=== PATIENT | female | born 1995 | race American Indian/Alaskan Native ===

== ENCOUNTER 2018-01-13 11:28 | Emergency (ER) | payer OTHER ==
[2018-01-13 11:47] VITALS: BP 150/93
[2018-01-13 12:07] LABS: Basophils % (Auto) 0.3 % (0.0-1.8); Hematocrit 43.4 % (30.3-42.9); Hemoglobin 14.1 gm/dl (10.1-14.3); Lymphocytes # (Auto) 1.4 K/mm3 (1.2-5.4); Mean Corpuscular HGB Conc 32 % (30-34); Mean Corpuscular Volume 77 fl (79-97); Monocytes # (Auto) 0.5 K/mm3 (0.0-0.8); Monocytes % (Auto) 6.2 % (0.0-7.3); Platelet Count 199 K/mm3 (140-440); Red Blood Count 5.63 M/mm3 (3.65-5.03); Red Cell Distribution Width 14.3 % (13.2-15.2)
[2018-01-13 12:12] LABS: Mean Corpuscular Hemoglobin 25 pg (28-32)
[2018-01-13 12:40] LABS: BUN/Creatinine Ratio 7; Blood Urea Nitrogen 5 mg/dL (7-17); Calcium 9.4 mg/dL (8.4-10.2); Hemolysis Index 27
[2018-01-13 13:02] LABS: Alanine Aminotransferase 25 units/L (7-56); Albumin 4.8 g/dL (3.9-5); Lipase 12 units/L (13-60)
[2018-01-13 13:07] LABS: Bilirubin,Direct < 0.2 mg/dL (0-0.2)
[2018-01-13] MEDS ORDERED: K-DUR PO ONE (13:09)
[2018-01-13] MEDS ORDERED: TORADOL IM ONE (13:09)
--- NOTE | 2018-01-13 13:35 | XRay Report ---
ABDOMEN, 2 views: History: Abdominal pain. There is no evidence of free air beneath the diaphragms. The gas pattern within the abdomen is unremarkable. There is no evidence of bowel dilatation, significant air-fluid levels, or pathologic calcifications. Organ shadows are unremarkable. An IUD is identified within the pelvis. IMPRESSION: Unremarkable abdomen.
[2018-01-13] MEDS ORDERED: GEODON IM ONE (13:54)
[2018-01-13] MEDS ORDERED: WATER FOR INJ (PF) 10 ML ONE (13:58)
[2018-01-13 14:09] LABS: Bacteria,Urine 1+ /HPF (Negative); Bilirubin,Urine NEG (Negative); Blood,Urine NEG (Negative); Color,Urine Yellow (Yellow); Hyaline Casts,Urine 1 /LPF; Mucus,Urine 2+ /HPF; Urobilinogen,Urine < 2.0 mg/dL (<2.0)
[2018-01-13 14:24] LABS: Amphetamine Screen,Urine PRESUMPTIVE NEGATIVE; Benzodiazepines Screen,Urine PRESUMPTIVE NEGATIVE; Cocaine Screen,Urine PRESUMPTIVE NEGATIVE; Methadone Screen,Urine PRESUMPTIVE NEGATIVE; Opiate Screen,Urine PRESUMPTIVE NEGATIVE
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
[2018-01-13 14:38] LABS: Cannabinoid Screen,Urine PRESUMPTIVE POSITIVE
== END 2018-01-13 23:59 ==
LOC: ED 11:28
DX: F23 Brief psychotic disorder (principal); R10.9 Unspecified abdominal pain
CPT/HCPCS: 36415; 74019; 80048; 80074; 80307; 81001; 82962; 83690; 84703; 85025; 96372; 99285; G0480; J1885; J3486; 80320

== ENCOUNTER 2019-11-20 19:56 | Emergency (ER) | payer OTHER ==
[2019-11-20] MEDS ORDERED: ZIPRASIDONE MESYLATE 20 MG VIAL IM ONE ×2 (20:49→20:50)
--- NOTE | 2019-11-20 20:54 | Emergency Department Report ---
ED Psych HPI - General Chief Complaint: Medical Clearance Stated Complaint: MH Time Seen by Provider: 11/20/19 20:11 Source: family Mode of arrival: Wheelchair - History of Present Illness Initial Comments: Patient is 24-year-old female with no significant past medical history. Patient brought to the emergency room by her sister from home. Sister stated that she refused to eat or drink for the last 4 days. She stated that she has been acting weird. She stated that she did not have a psychiatric diagnosis before but patient was admitted to [facility] in 2018. In the emergency room patient is crying inappropriately and laughing inappropriately. She asked for water and when the handed the work-up to her she stated that she can take it because she does not have arm. When I examined her, she stated that she is not feeling me touching her. Patient is obviously an acute psychosis. Complaint: altered mental status -: Sudden Associated Psychiatric Symptoms: racing thoughts - Related Data Home Medications Medication Instructions Recorded Confirmed Last Taken Yxxrm-Bswejtw-Tdngjxmv Tablet 1 tab PO DAILY 01/13/18 01/13/18 Unknown metFORMIN 11/20/19 Unknown Allergies Allergy/AdvReac Type Severity Reaction Status Date / Time No Known Allergies Allergy Unverified 01/13/18 11:43 ED Review of Systems ROS: Stated complaint: MH Other details as noted in HPI Comment: All other systems reviewed and negative Constitutional: denies: chills, fever Respiratory: denies: cough, shortness of breath Cardiovascular: palpitations. denies: chest pain Gastrointestinal: denies: abdominal pain, nausea, vomiting Musculoskeletal: denies: back pain Neurological: denies: headache, weakness ED Past Medical Hx - Past Medical History Previous Medical History?: Yes Additional medical history: PCOS - Surgical History Past Surgical History?: No - Social History Smoking Status: Never Smoker Substance Use Type: None - Medications Home Medications: Home Medications Medication Instructions Recorded Confirmed Last Taken Type Wrjoe-Ioqaudv-Xmtpbuyd Tablet 1 tab PO DAILY 01/13/18 01/13/18 Unknown History metFORMIN 11/20/19 Unknown History ED Physical Exam - General Limitations: No Limitations General appearance: alert, anxious, other (Agitated.) - Head Head exam: Present: atraumatic, normocephalic, normal inspection - Eye Eye exam: Present: normal appearance - ENT ENT exam: Present: mucous membranes dry - Neck Neck exam: Present: normal inspection, full ROM. Absent: tenderness, meningism us, lymphadenopathy, thyromegaly - Respiratory Respiratory exam: Present: normal lung sounds bilaterally - Cardiovascular Cardiovascular Exam: Present: tachycardia - GI/Abdominal GI/Abdominal exam: Present: soft, normal bowel sounds. Absent: distended, tenderness, guarding, rebound, rigid, organomegaly, mass, bruit, pulsatile mass, hernia - Extremities Exam Extremities exam: Present: normal inspection, full ROM, normal capillary refill. Absent: tenderness, pedal edema, joint swelling, calf tenderness - Back Exam Back exam: Present: normal inspection, full ROM. Absent: CVA tenderness (R), CVA tenderness (L), muscle spasm, paraspinal tenderness - Neurological Exam Neurological exam: Present: alert, oriented X3, CN II-XII intact, normal gait, reflexes normal. Absent: motor sensory deficit - Psychiatric Psychiatric exam: Present: agitated, anxious, manic. Absent: homicidal ideation, suicidal ideation - Skin Skin exam: Present: warm, intact, normal color ED Course Vital Signs 11/20/19 11/21/19 20:19 01:02 Temperature 97.5 F L Pulse Rate 120 H 82 Respiratory 22 18 Rate Blood Pressure 126/87 119/80 [Left] O2 Sat by Pulse 100 100 Oximetry ED Medical Decision Making - Lab Data Result diagrams: 11/20/19 21:11 11/20/19 21:11 Critical care attestation.: If time is entered above; I have spent that time in minutes in the direct care of this critically ill patient, excluding procedure time. ED Disposition Clinical Impression: Acute psychosis Disposition: DC/TX-65 PSY HOSP/PSY UNIT Is pt being admited?: No Condition: Stable Referrals: PRIMARY CARE, [Primary Care Provider] - 3-5 Days
[2019-11-20 21:24] LABS: Basophils % (Auto) 0.6 % (0.0-1.8); Eosinophils % (Auto) 0.7 % (0.0-4.3); Hematocrit 50.8 % (30.3-42.9); Hemoglobin 17.1 gm/dl (10.1-14.3); Lymphocytes # (Auto) 3.4 K/mm3 (1.2-5.4); Mean Corpuscular HGB Conc 34 % (30-34); Mean Corpuscular Volume 82 fl (79-97); Monocytes # (Auto) 0.5 K/mm3 (0.0-0.8); Monocytes % (Auto) 8.7 % (0.0-7.3); Red Blood Count 6.17 M/mm3 (3.65-5.03)
[2019-11-20 21:31] LABS: Platelet Count 154 K/mm3 (140-440)
[2019-11-20 21:40] LABS: BUN/Creatinine Ratio 14; Blood Urea Nitrogen 15 mg/dL (7-17); Hemolysis Index 4
[2019-11-20 21:45] LABS: Albumin 5.1 g/dL (3.9-5); Bilirubin,Direct 0.3 mg/dL (0-0.2)
[2019-11-21] MEDS ORDERED: LORazepam 2 MG/ML VIAL ONE (00:55)
[2019-11-21] MEDS ORDERED: LORazepam 2 MG/ML VIAL IM ONE (01:00)
[2019-11-21 01:09] VITALS: BP 119/80
[2019-11-21 08:46] LABS: Bacteria,Urine 4+ /HPF (Negative); Bilirubin,Urine NEG (Negative); Blood,Urine SM (Negative); Color,Urine Yellow (Yellow); Mucus,Urine 3+ /HPF; Protein,Urine <15 mg/dL mg/dL (Negative); Urobilinogen,Urine < 2.0 mg/dL (<2.0)
[2019-11-21 09:00] LABS: Amphetamine Screen,Urine PRESUMPTIVE NEGATIVE; Benzodiazepines Screen,Urine PRESUMPTIVE NEGATIVE; Cocaine Screen,Urine PRESUMPTIVE NEGATIVE; Methadone Screen,Urine PRESUMPTIVE NEGATIVE; Opiate Screen,Urine PRESUMPTIVE NEGATIVE
[2019-11-21 09:34] LABS: Cannabinoid Screen,Urine PRESUMPTIVE POSITIVE
== END 2019-11-21 16:16 ==
LOC: ED 19:56
DX: F23 Brief psychotic disorder (principal); E28.2 Polycystic ovarian syndrome; Z79.899 Other long term (current) drug therapy
CPT/HCPCS: 36415; 80048; 80076; 80307; 81001; 84703; 85025; 87086; 96372; 99285; J2060; J3486; 80320; G0480

== ENCOUNTER 2020-03-17 13:26 | Emergency (ER) | payer OTHER ==
[2020-03-17] MEDS ORDERED: HALOPERIDOL LACTATE 5 MG/1 ML INJ IM PRN (22:59)
[2020-03-17] MEDS ORDERED: LORazepam 2 MG/ML VIAL IM PRN (22:59)
[2020-03-17] MEDS ORDERED: diphenhydrAMINE 50 MG/ML VIAL IM PRN (22:59)
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
== END 2020-03-17 13:40 ==
LOC: ED 13:26
DX: R51 Headache (principal); Z53.21 Procedure and treatment not carried out due to patient leaving prior to being seen by health care provider

== ENCOUNTER 2020-03-17 20:57 | Emergency (ER) | payer OTHER ==
[2020-03-17 22:29] LABS: Blood Urea Nitrogen 8 mg/dL (7-17); Calcium 9.7 mg/dL (8.4-10.2); Hemolysis Index 10
[2020-03-17 22:31] LABS: BUN/Creatinine Ratio 11
[2020-03-17 22:40] LABS: Basophils % (Auto) 0.3 % (0.0-1.8); Eosinophils % (Auto) 0.1 % (0.0-4.3); Hematocrit 44.7 % (30.3-42.9); Hemoglobin 14.8 gm/dl (10.1-14.3); Lymphocytes # (Auto) 2.8 K/mm3 (1.2-5.4); Lymphocytes % (Auto) 30.5 % (13.4-35.0); Mean Corpuscular HGB Conc 33 % (30-34); Mean Corpuscular Volume 81 fl (79-97); Monocytes # (Auto) 0.8 K/mm3 (0.0-0.8); Monocytes % (Auto) 9.3 % (0.0-7.3); Platelet Count 179 K/mm3 (140-440); Red Cell Distribution Width 14.2 % (13.2-15.2)
[2020-03-17] MEDS ORDERED: diphenhydrAMINE 50 MG/ML VIAL ONE (23:02)
[2020-03-17] MEDS ORDERED: HALOPERIDOL LACTATE 5 MG/1 ML INJ ONE ×2 (23:02→23:03)
[2020-03-17] MEDS ORDERED: LORazepam 2 MG/ML VIAL ONE (23:03)
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
[2020-03-17] MEDS ORDERED: LORazepam 2 MG/ML VIAL IM ONE (23:15)
[2020-03-17] MEDS ORDERED: HALOPERIDOL LACTATE 5 MG/1 ML INJ IM PRN (23:20)
[2020-03-17] MEDS ORDERED: diphenhydrAMINE 50 MG/ML VIAL IM PRN (23:20)
[2020-03-18 02:35] LABS: Amphetamine Screen,Urine PRESUMPTIVE NEGATIVE; Benzodiazepines Screen,Urine PRESUMPTIVE NEGATIVE; Cannabinoid Screen,Urine PRESUMPTIVE POSITIVE; Cocaine Screen,Urine PRESUMPTIVE NEGATIVE; Methadone Screen,Urine PRESUMPTIVE NEGATIVE; Opiate Screen,Urine PRESUMPTIVE NEGATIVE
[2020-03-18 02:39] LABS: Bacteria,Urine 2+ /HPF (Negative); Bilirubin,Urine NEG (Negative); Blood,Urine NEG (Negative); Color,Urine Yellow (Yellow); Mucus,Urine 1+ /HPF; Protein,Urine <15 mg/dL mg/dL (Negative); Urobilinogen,Urine < 2.0 mg/dL (<2.0)
[2020-03-18] MEDS ORDERED: LORazepam 2 MG/ML VIAL ONE (10:32)
[2020-03-18] MEDS ORDERED: ZIPRASIDONE MESYLATE 20 MG VIAL IM ONE ×2 (10:33→11:02)
[2020-03-18] MEDS: LORazepam 2 MG/ML VIAL IM PRN ×2 (11:00→20:39)
[2020-03-18 20:59] VITALS: BP 123/86
== END 2020-03-18 20:50 ==
LOC: ED 20:57
DX: F31.9 Bipolar disorder, unspecified (principal); E28.2 Polycystic ovarian syndrome; Z79.899 Other long term (current) drug therapy
CPT/HCPCS: 36415; 80048; 80307; 81001; 84703; 85025; 96372; 99285; J1200; J1630; J2060; J3486; 80320; G0480